=== PATIENT | male | born 1965 | race Caucasian/White ===

== ENCOUNTER 2017-06-26 10:46 | Observation (INO) | payer BC ==
[2017-06-26] MEDS ORDERED: BABY ASPIRIN 81 MG CHEW PO ONE (10:56)
[2017-06-26] MEDS ORDERED: Cardizem IV 50 MG/10 ML IV ONE ×5 (10:56→12:49)
[2017-06-26] MEDS ORDERED: CARDIZEM DRIP 100 MG/100 ML D5W 100 ML IV PRN ×2 (10:56→14:03)
--- NOTE | 2017-06-26 10:56 | ERPHSYRPT ---
- History of Present Illness Time Seen by Provider: 06/26/17 10:52 Source: patient Exam Limitations: no limitations Physician History: ABOUT 15 MINUTES AGO PT WAS WALKING TO HIS VEHICLE WHEN HE SUDDENLY FELT LIGHTHEADED WITH A FAST HEART RATE, SOME SHORTNESS OF AIR, WEAKNESS IN THE LEGS AND LEFT FACIAL NUMBNESS. PT DENIES RECENT STRENUOUS PHYSICAL ACTIVITY, CAFFEINE INTAKE TODAY, CHEST PAIN, FEVER, NAUSEA, VOMITING, ABDOMINAL PAIN. PT STATES HE HAS NEVER HAD THIS FAST HEART RATE BEFORE. Allergies/Adverse Reactions: No Known Drug Allergies Allergy (Verified 06/26/17 11:15) Home Medications: Alprazolam [Xanax 0.5 mg] 0.25 mg PO .PRN 02/21/15 [History] Esomeprazole Magnesium [Nexium] 40 mg PO DAILY 10/14/15 [History] Hydrochlorothiazide 25 mg [hydroDIURIL 25 MG] 25 mg PO DAILY 10/14/15 [ History] Lisinopril 10 mg [Zestril 10 MG] 40 mg PO DAILY 10/14/15 [History] Hx Tetanus, Diphtheria Vaccination/Date Given: Yes (UP TO DATE) Hx Influenza Vaccination/Date Given: No Hx Pneumococcal Vaccination/Date Given: No - Review of Systems Constitutional: Weakness (WEAKNESS IN BOTH LEGS TODAY) Respiratory: Dyspnea Cardiac: Other (FAST HEART RATE), No Chest Pain Neurological: Sensory Changes (LEFT FACIAL NUMBNESS TODAY), Other ( LIGHTHEADEDNESS TODAY) All Other Systems: Reviewed and Negative - Past Medical History Pertinent Past Medical History: Yes Neurological History: Other ENT History: No Pertinent History Cardiac History: Hypertension Respiratory History: No Pertinent History Endocrine Medical History: Other Musculoskeletal History: Degenerative Disk Disease GI Medical History: GERD History: No Pertinent History Psycho-Social History: Anxiety Male Reproductive Disorders: No Pertinent History Other Medical History: carpal tunnel surgery L 8 years ago. - Past Surgical History Past Surgical History: Yes Neuro Surgical History: No Pertinent History Cardiac: Cardiac Catheterization Respiratory: No Pertinent History Gastrointestinal: Cholecystectomy Genitourinary: No Pertinent History Musculoskeletal: Other Male Surgical History: No Pertinent History Other Surgical History: carpal tunnel left hand, LUIS ALFREDO - couple months ago - Social History Smoking Status: Never smoker Exposure to second hand smoke: No Alcohol Use: 6 /day Drug Use: none Patient Lives Alone: No Significant Family History: no pertinent family hx - Nursing Vital Signs Nursing Vital Signs: Initial Vital Signs Temperature 98.3 F 06/26/17 10:56 Pulse Rate 166 H 06/26/17 10:56 Respiratory Rate 18 06/26/17 10:56 Blood Pressure 190/99 06/26/17 10:56 O2 Sat by Pulse Oximetry 97 06/26/17 10:56 Pain Scale Pain Intensity 2 - Physical Exam General Appearance: alert, anxiety Eye Exam: PERRL/EOMI Ears, Nose, Throat Exam: TMs normal, pharynx normal, moist mucous membranes Neck Exam: normal inspection Respiratory Exam: lungs clear Cardiovascular Exam: tachycardia, irregular Gastrointestinal/Abdomen Exam: soft, normal bowel sounds Back Exam: normal range of motion Extremity Exam: normal inspection, normal range of motion, No pedal edema Neurologic Exam: alert, cooperative, sensation nml (TO LIGHT TOUCH), No motor deficits, No motor weakness Skin Exam: warm, dry - Course Nursing assessment & vital signs reviewed: Yes EKG Interpreted by Me: RATE ([id number]), A-fib, NORMAL AXIS, Non-specific ST Changes Ordered Tests: Active Orders 24 hr Category Date Time Status Volunteer Recruiter STAT Care 06/26/17 10:57 Active EKG-ER Only STAT Care 06/26/17 10:56 Active IV Insertion STAT Care 06/26/17 10:56 Active Oxygen-ED Only NASAL CANNULA 2 lpm Care 06/26/17 10:56 Active CHEST 1 VIEW (PORTABLE) Stat Exams 06/26/17 10:57 Completed HEAD WITHOUT CONTRAST [CT] Stat Exams 06/26/17 11:03 Completed AMYLASE Stat Lab 06/26/17 11:10 Completed CBC W DIFF Stat Lab 06/26/17 11:10 Completed CMP Stat Lab 06/26/17 11:10 Completed LIPASE Stat Lab 06/26/17 11:10 Completed MAGNESIUM Stat Lab 06/26/17 11:10 Completed NT PRO BNP Stat Lab 06/26/17 11:10 Completed PROTIME WITH INR Stat Lab 06/26/17 11:10 Completed PTT Stat Lab 06/26/17 11:10 Completed T4 Stat Lab 06/26/17 11:10 Completed TROPONIN Q3H Lab 06/26/17 11:10 Completed TROPONIN Q3H Lab 06/26/17 14:00 Ordered TROPONIN Q3H Lab 06/26/17 17:00 Ordered TROPONIN Q3H Lab 06/26/17 20:00 Ordered TROPONIN Q3H Lab 06/26/17 23:00 Ordered TSH [TSH, 3RD Generation] Stat Lab 06/26/17 11:10 Completed UA W/RFX UR CULTURE Stat Lab 06/26/17 10:57 Ordered Urine Triage Profile Stat Lab 06/26/17 10:57 Ordered Medication Summary Generic Name Dose Route Start Last Admin Trade Name Frerene PRN Reason Stop Dose Admin Diltiazem HCl 100 mls @ 5 mls/hr 06/26/17 10:56 06/26/17 11:29 Cardizem Drip 100 Mg/100 Ml D5w IV 07/26/17 10:55 10 mg/hr .Q20H PRN 10 mls/hr HEART RATE/ A-FIB Titration Protocol 5 MG/HR Sodium Chloride 1,000 mls @ 100 mls/hr 06/26/17 11:00 06/26/17 11:21 Sodium Chloride 0.9% 1000 Ml IV 07/26/17 10:59 100 mls/hr .Q10H ADOLFO Administration Discontinued Medications Generic Name Dose Route Start Last Admin Trade Name Frerene PRN Reason Stop Dose Admin Aspirin 324 mg 06/26/17 10:56 06/26/17 11:27 Baby Aspirin 81 Mg Chew PO 06/26/17 10:57 324 mg STAT ONE Administration Aspirin Confirm 06/26/17 11:17 Baby Aspirin 81 Mg Chew Administered 06/26/17 11:18 Dose 324 mg .ROUTE .STK-MED ONE Diltiazem HCl 15 mg 06/26/17 10:56 06/26/17 11:20 Cardizem Iv 50 Mg/10 Ml IV 06/26/17 10:57 15 mg STAT ONE Administration Diltiazem HCl Confirm 06/26/17 11:18 Cardizem Iv 50 Mg/10 Ml Administered 06/26/17 11:19 Dose 50 mg IV .STK-MED ONE Diltiazem HCl 20 mg 06/26/17 11:27 06/26/17 11:36 Cardizem Iv 50 Mg/10 Ml IV 06/26/17 11:28 50 mg STAT ONE Administration Diltiazem HCl 20 mg 06/26/17 12:21 Cardizem Iv 50 Mg/10 Ml IV 06/26/17 12:22 STAT ONE Lab/Rad Data: Laboratory Result Diagrams 06/26/17 11:10 06/26/17 11:10 Laboratory Results 06/26/17 06/26/17 06/26/17 Range/Units 11:10 11:10 11:10 WBC 5.3 (4.0-10.5) K/mm3 RBC 5.37 (4.1-5.6) M/mm3 Hgb 16.3 (12.5-18.0) gm/dl Hct 48.3 (42-50) % MCV 89.9 (78-100) fl MCH 30.4 (26-32) pg MCHC 33.7 (32-36) g/dl RDW 13.4 (11.5-14.0) % Plt Count 208 (150-450) K/mm3 MPV 10.5 H (6-9.5) fl Gran % 51.8 (36.0-66.0) % Lymphocytes % 32.8 (24.0-44.0) % Monocytes % 12.1 H (0.0-12.0) % Eosinophils % 2.4 (0.00-5.0) % Basophils % 0.9 (0.0-0.4) % Basophils # 0.05 (0-0.4) INR (0.8-3.0) APTT (24.1-36.1) SECONDS Sodium (136-145) mEq/L Potassium (3.5-5.1) mEq/L Chloride (98-107) mEq/L Carbon Dioxide (21-32) mEq/L Anion Gap (5-15) MEQ/L BUN (9-20) mg/dL Creatinine (0.55-1.30) mg/dl Estimated GFR ML/MIN Glucose (70-110) MG/DL Calcium (8.5-10.1) mg/dL Magnesium (1.8-2.4) mg/dL Total Bilirubin (0.2-1.0) mg/dL AST (15-37) U/L ALT (12-78) U/L Alkaline Phosphatase (46-116) U/L Troponin I < 0.017 (0.000-0.056) ng/ml NT-Pro-B Natriuret Pep (0-125) pg/ml Serum Total Protein (6.4-8.2) gm/dL Albumin (3.4-5.0) g/dL Amylase (25-115) U/L Lipase (73-393) U/L Thyroxine (T4) 9.3 (4.7-13.3) UG/DL TSH 3rd Generation 2.690 (0.358-3.740) mIU/L 06/26/17 06/26/17 Range/Units 11:10 11:10 WBC (4.0-10.5) K/mm3 RBC (4.1-5.6) M/mm3 Hgb (12.5-18.0) gm/dl Hct (42-50) % MCV (78-100) fl MCH (26-32) pg MCHC (32-36) g/dl RDW (11.5-14.0) % Plt Count (150-450) K/mm3 MPV (6-9.5) fl Gran % (36.0-66.0) % Lymphocytes % (24.0-44.0) % Monocytes % (0.0-12.0) % Eosinophils % (0.00-5.0) % Basophils % (0.0-0.4) % Basophils # (0-0.4) INR 1.08 (0.8-3.0) APTT 28.7 (24.1-36.1) SECONDS Sodium 139 (136-145) mEq/L Potassium 3.8 (3.5-5.1) mEq/L Chloride 102 (98-107) mEq/L Carbon Dioxide 24.5 (21-32) mEq/L Anion Gap 16.2 H (5-15) MEQ/L BUN 9 (9-20) mg/dL Creatinine 1.11 (0.55-1.30) mg/dl Estimated GFR > 60 ML/MIN Glucose 204 H (70-110) MG/DL Calcium 9.1 (8.5-10.1) mg/dL Magnesium 1.9 (1.8-2.4) mg/dL Total Bilirubin 0.30 (0.2-1.0) mg/dL AST 51 H (15-37) U/L ALT 85 H (12-78) U/L Alkaline Phosphatase 62 (46-116) U/L Troponin I (0.000-0.056) ng/ml NT-Pro-B Natriuret Pep 22 (0-125) pg/ml Serum Total Protein 7.9 (6.4-8.2) gm/dL Albumin 3.8 (3.4-5.0) g/dL Amylase 60 (25-115) U/L Lipase 217 (73-393) U/L Thyroxine (T4) (4.7-13.3) UG/DL TSH 3rd Generation (0.358-3.740) mIU/L - Progress Discussed with Dr.: Farheen (OBS ICU - [id number]), Other (SPOKE WITH DR FAULKNER( DEMAND GENERATOR MANAGER)([id number]) - WILL CONSULT IN ICU. PT TO HAVE XARELTO 20 MG PO DAILY AND LOPRESSIOR 50MG PO BID.) - Departure Time of Disposition: 12:41 Departure Disposition: Observation (ICU) Clinical Impression: NEW ONSET A.FIB WITH RVR, HTN, GERD, ANXIETY Condition: Stable Critical Care Time: Yes Critical Care Time(excluding separately billable procedures): 30-74 minutes Referrals: JOVANY ECKERT [Primary Care Provider] -
[2017-06-26] MEDS ORDERED: Sodium Chloride 0.9% 1000 ML 1,000 ML IV SCH (11:00)
[2017-06-26] MEDS ORDERED: BABY ASPIRIN 81 MG CHEW ONE (11:17)
[2017-06-26] MEDS ORDERED: CARDIZEM DRIP 100 MG/100 ML D5W 100 ML IV ONE (11:18)
[2017-06-26 11:19] LABS: BASOPHIL % 0.9 % (0.0-0.4); Basophil (Absolute #) 0.05 (0-0.4); Eosinophil % 2.4 % (0.00-5.0); Eosinophil (Absolute #) 0.13 (0-0.5); Granulocyte Absolute (ANC) 2.75 (1.4-6.9); Granulocytes % 51.8 % (36.0-66.0); Hematocrit 48.3 % (42-50); Hemoglobin 16.3 gm/dl (12.5-18.0); Lymphocyte (Absolute #) 1.74 (1.0-4.6); Lymphocytes % 32.8 % (24.0-44.0); Mean Cell Volume 89.9 fl (78-100); Mean Corpuscular Hemoglobin 30.4 pg (26-32); Mean Corpuscular Hgb Concent. 33.7 g/dl (32-36); Mean Platelet Volume 10.5 fl (6-9.5); Monocyte (Absolute #) 0.64 (0.0-1.3); Monocytes % 12.1 % (0.0-12.0); Platelet Count 208 K/mm3 (150-450); Red Blood Count 5.37 M/mm3 (4.1-5.6); Red Cell Distribution Width 13.4 % (11.5-14.0); White Blood Count 5.3 K/mm3 (4.0-10.5)
[2017-06-26] MEDS ORDERED: Sodium Chloride 0.9% 1000 ML 1,000 ML ONE (11:19)
[2017-06-26 11:37] LABS: INR 1.08 (0.8-3.0)
[2017-06-26 11:40] LABS: PTT 28.7 SECONDS (24.1-36.1)
[2017-06-26 11:56] LABS: T4 9.3 UG/DL (4.7-13.3); TSH, 3RD Generation 2.69 mIU/L (0.358-3.740)
[2017-06-26 11:58] LABS: ALBUMIN 3.8 g/dL (3.4-5.0); ALKALINE PHOSPHATASE 62 U/L (46-116); AMYLASE 60 U/L (25-115); ANION GAP 16.2 MEQ/L (5-15); BLOOD UREA NITROGEN 9 mg/dL (9-20); CHLORIDE 102 mEq/L (98-107); Calcium 9.1 mg/dL (8.5-10.1); Carbon Dioxide 24.5 mEq/L (21-32); Creatinine 1 1.11 mg/dl (0.55-1.30); EST GLOMERULAR FILTRATION RATE > 60 ML/MIN; Glucose 204 MG/DL (70-110); LIPASE 217 U/L (73-393); MAGNESIUM 1.9 mg/dL (1.8-2.4); NT PRO BNP 22 pg/ml (0-125); Potassium 3.8 mEq/L (3.5-5.1); SGOT/AST 51 U/L (15-37); SGPT/ALT 85 U/L (12-78); SODIUM 139 mEq/L (136-145); Total Protein 7.9 gm/dL (6.4-8.2)
--- NOTE | 2017-06-26 12:27 | XRAY ---
Indication: Tachycardia. Comparison: February 21, 2015. Portable chest again demonstrates scattered calcified granulomas. No focal infiltrate, consolidation, or large effusion. Heart is not enlarged for AP portable technique. Bony thorax intact again with mild degenerative changes. Impression: Stable nonacute chest with chronic features.
--- NOTE | 2017-06-26 12:29 | XRAY ---
Indication: Tachycardia. Multiple contiguous axial images obtained through the head without contrast. Comparison: None Normal appearing brain parenchyma, ventricles, and bony calvarium. Visualized paranasal sinuses and mastoid air cells are clear. Impression: Normal CT head without contrast exam. CTDI 68.81
[2017-06-26 12:57] LABS: Appearance CLEAR (CLEAR); Bilirubin NEGATIVE (NEGATIVE); Blood NEGATIVE Ery/ul (0-5); Glucose NEGATIVE (NEGATIVE); Ketones NEGATIVE (NEGATIVE); Leukocyte Esterase NEGATIVE (NEGATIVE); Nitrite NEGATIVE (NEGATIVE); Protein,Urine Dip NEGATIVE (Negative); Specific Gravity 1.005 (1.005-1.025); Urobilinogen NORMAL mg/dL (0-1)
[2017-06-26 12:59] LABS: Amphetamine,Urine NEG. (NEGATIVE); Barbiturate,Urine NEG. (NEGATIVE); Benzodiazepine,Urine NEG. (NEGATIVE); Cocaine,Urine NEG. (NEGATIVE); Methadone,Urine NEG. (NEGATIVE); Opiate,Urine NEG. (NEGATIVE); PCP,Urine NEG. (NEGATIVE); THC,Urine NEG. (NEGATIVE)
[2017-06-26] MEDS ORDERED: XARELTO 10 MG TABLET PO SCH (13:00)
[2017-06-26] MEDS ORDERED: Lopressor 50 MG ONE (13:07)
[2017-06-26] MEDS ORDERED: Phenergan 25 MG INJ IV PRN (14:03)
[2017-06-26] MEDS ORDERED: TYLENOL 325 MG PO PRN (14:03)
[2017-06-26] MEDS ORDERED: xanAX 0.25 MG PO PRN (17:09)
[2017-06-26] MEDS ORDERED: Restoril 15 MG PO PRN (17:11)
--- NOTE | 2017-06-26 17:14 | PCM.HP ---
History of Present Illness - Chief Complaint Chief Complaint: Afib RVR Date: 06/26/17 History of Present Illness: is a 52 year old male. with hypertension, obstructive sleep apnea, obesity and moderate to heavy alcohol consumption who presented to ER today after acute onset palpitations and "not feeling right". He was feeling his normal self yesterday and this am and was drinking a gatorade in the gas station when he felt his heart start to flutter walked out to his car and felt strange and it pounding. He got his who brought him to the ED. He has chronic thoracic back pain that wraps around the thoracic area but no new chest pain or shortness of breath. He denies any caffeine or supplements. He drinks 8 to 10 light beers each night and last night was no different. He chews tobacco. He had a heart cath 5 to 6 years ago after a questionable stress test with Dr. Rosales that the patient reports was ok. - Review of Systems Constitutional: No Fever, No Chills Eyes: No Symptoms Ears, Nose, & Throat: No Symptoms Respiratory: No Cough, No Short Of Breath Cardiac: Palpitations, No Chest Pain, No Edema, No Syncope Abdominal/Gastrointestinal: No Abdominal Pain, No Nausea, No Vomiting, No Diarrhea Genitourinary Symptoms: No Dysuria Musculoskeletal: Back Pain, No Neck Pain Skin: No Rash Neurological: No Dizziness, No Focal Weakness, No Sensory Changes Psychological: No Symptoms Endocrine: No Symptoms Hematologic/Lymphatic: No Symptoms Immunological/Allergic: No Symptoms Medications & Allergies Home Medications: Home Medication List Esomeprazole Magnesium [Nexium] 40 mg PO DAILY 10/14/15 [History Confirmed 06/26] Hydrochlorothiazide 25 mg [hydroDIURIL 25 MG] 25 mg PO DAILY 10/14/15 [ History Confirmed 06/26/17] Alprazolam [Xanax 0.25 mg] 0.25 mg PO Q12H PRN PRN 06/26/17 [History Confirmed 06/26/17] Lisinopril [Zestril 40 mg] 40 mg PO DAILY 06/26/17 [History Confirmed 06/26/17] Allergies/Adverse Reactions: Allergies Allergy/AdvReac Type Severity Reaction Status Date / Time No Known Drug Allergies Allergy Verified 06/26/17 15:13 - Past Medical History Past Medical History: Yes Neurological History: No Pertinent History, Other ENT History: No Pertinent History Cardiac History: Arrhythmia, Hypertension Respiratory History: No Pertinent History Endocrine Medical History: No Pertinent History Musculoskelatal History: Degenerative Disk Disease GI Medical History: Hernia History: No Pertinent History Pyscho-Social History: Anxiety Male Reproductive Disorders: No Pertinent History Comment: carpal tunnel surgery L hand 8 years ago. - Past Surgical History Past Surgical History: Yes Neuro Surgical History: No Pertinent History Cardiac History: Cardiac Catheterization Respiratory Surgery: No Pertinent History GI Surgical History: Cholecystectomy Genitourinary Surgical Hx: No Pertinent History Musculskeletal Surgical Hx: Other Male Surgical History: No Pertinent History Other Surgical History: carpal tunnel left hand, LUIS ALFREDO - couple months ago - Social History Smoking Status: Never smoker (Daily chews tobacco) Exposure to second hand smoke: No Alcohol: Daily (8 to 10 light beers per night) Drug Use: none Significant Family History: heart disease (father at age 35 suspected heart disease due to rheumatic fever) - Physical Exam Vital Signs: Vital Signs - 24 hr Temp Pulse Pulse Resp BP Pulse Ox 06/26/17 16:00 16 06/26/17 15:36 78 16 98 06/26/17 14:45 97.5 F 97 H 16 113/62 97 06/26/17 12:58 120 H 18 125/66 96 06/26/17 12:21 135 H 18 161/98 98 06/26/17 11:36 128 H 20 136/77 97 06/26/17 11:22 136 H 18 186/89 06/26/17 10:56 98.3 F 177 H 166 H 18 190/99 97 Oxygen-Last 24 hours O2 Percentage 2 Liters = 28% O2 Percentage 2 Liters = 28% O2 Percentage 2 Liters = 28% O2 Percentage 2 Liters = 28% O2 Percentage 2 Liters = 28% General Appearance: no apparent distress, alert, obese Neurologic Exam: alert, oriented x 3, cooperative, normal mood/affect, nml cerebellar function, nml station & gait, sensation nml, No motor deficits Eye Exam: PERRL/EOMI, eyes nml inspection Ears, Nose, Throat Exam: normal ENT inspection, pharynx normal, moist mucous membranes Neck Exam: normal inspection, non-tender, supple, full range of motion Respiratory Exam: normal breath sounds, lungs clear, No respiratory distress Cardiovascular Exam: normal heart sounds, normal peripheral pulses, irregular Gastrointestinal/Abdomen Exam: soft, normal bowel sounds, No tenderness, No mass Back Exam: normal inspection, normal range of motion, No CVA tenderness, No vertebral tenderness Extremity Exam: normal inspection, normal range of motion, pelvis stable Skin Exam: normal color, warm, dry, No rash Lymphatic Exam: No adenopathy Results - Labs Lab/Micro Results: Lab Results-Last 24 Hours 06/26/17 Range/Units 14:00 Troponin I < 0.017 (0.000-0.056) ng/ml - Radiology Impressions Radiology Exams & Impressions: Radiology Procedures Category Date Time Status ECHO W/2D AND DOPPLER [US] Routine Exams 06/26/17 Ordered Assessment/Plan (1) Atrial fibrillation with RVR Current Visit: Yes Status: Acute Assessment & Plan: therapeutically anticoagulated on xarelto received in ED checking echo currently rate controlled on cardizem at 10mg/h Dr. Ortiz consulted on tele cardiology and recommends continue this tonight if spontaneously converts to sinus will plan on outpatient f/u on metoprolol if he does not convert will be npo at midnight and will plan for outpatient ADITHYA with cardioversion tomorrow in [place]. discussed tobacco cessation with his chewing and alcohol avoidance/moderation Code(s): I48.91 - UNSPECIFIED ATRIAL FIBRILLATION (2) Hypertension Current Visit: Yes Status: Chronic Code(s): I10 - ESSENTIAL (PRIMARY) HYPERTENSION (3) Sleep apnea Current Visit: Yes Status: Chronic Code(s): G47.30 - SLEEP APNEA, UNSPECIFIED (4) Morbid obesity Current Visit: Yes Status: Chronic Code(s): E66.01 - MORBID (SEVERE) OBESITY DUE TO EXCESS CALORIES
[2017-06-26] MEDS ORDERED: Zestril 20 MG PO SCH (18:00)
[2017-06-26] MEDS ORDERED: Protonix 40MG Tablet PO SCH (18:00)
[2017-06-26] MEDS: Sodium Chloride 0.9% 1000 ML 1,000 ML IV SCH (20:05)
[2017-06-26] MEDS ORDERED: Lopressor 50 MG PO SCH (22:00)
[2017-06-27 05:41] LABS: BASOPHIL % 0.7 % (0.0-0.4); Basophil (Absolute #) 0.04 (0-0.4); Eosinophil % 2.8 % (0.00-5.0); Eosinophil (Absolute #) 0.16 (0-0.5); Granulocyte Absolute (ANC) 2.86 (1.4-6.9); Granulocytes % 49.2 % (36.0-66.0); Hematocrit 46.3 % (42-50); Lymphocyte (Absolute #) 1.97 (1.0-4.6); Mean Cell Volume 92.2 fl (78-100); Mean Corpuscular Hemoglobin 29.9 pg (26-32); Mean Corpuscular Hgb Concent. 32.4 g/dl (32-36); Mean Platelet Volume 10.6 fl (6-9.5); Monocyte (Absolute #) 0.77 (0.0-1.3); Monocytes % 13.3 % (0.0-12.0); Platelet Count 227 K/mm3 (150-450); Red Blood Count 5.02 M/mm3 (4.1-5.6); Red Cell Distribution Width 13.6 % (11.5-14.0); White Blood Count 5.8 K/mm3 (4.0-10.5)
[2017-06-27] MEDS: Sodium Chloride 0.9% 1000 ML 1,000 ML IV SCH (05:44)
[2017-06-27 06:48] LABS: ALBUMIN 3.1 g/dL (3.4-5.0); ALKALINE PHOSPHATASE 47 U/L (46-116); ANION GAP 13.4 MEQ/L (5-15); BLOOD UREA NITROGEN 8 mg/dL (9-20); CHLORIDE 108 mEq/L (98-107); Calcium 8.7 mg/dL (8.5-10.1); Carbon Dioxide 25.8 mEq/L (21-32); Creatinine 1 1.02 mg/dl (0.55-1.30); EST GLOMERULAR FILTRATION RATE > 60 ML/MIN; Glucose 100 MG/DL (70-110); MAGNESIUM 2.1 mg/dL (1.8-2.4); Potassium 4.1 mEq/L (3.5-5.1); SGOT/AST 32 U/L (15-37); SGPT/ALT 66 U/L (12-78); SODIUM 143 mEq/L (136-145); Total Protein 6.8 gm/dL (6.4-8.2)
--- NOTE | 2017-06-27 07:46 | PCM.DS ---
Discharge Summary Date of Admission: 06/26/17 13:49 Date of Discharge: 06/27/2017 Admitting Physician: BAILEY CHAKRABORTY Consults: Dr. Ortiz Primary Care Provider: JOVANY ECKERT Allergies Allergies No Known Drug Allergies Allergy (Verified 06/26/17 15:13) Hospital Summary - Hospital Course Hospital Course: Mr. Guerrero is a 52 y/o with hypertension, obstructive sleep apnea, obesity and moderate to heavy alcohol consumption who presented to ER after an acute onset palpitations and "not feeling right". He was found to be in atrial fibrillation with RVR with a rate of 170 on arrival. He was given cardizem bolus followed by drip with improvement in the rate. He had previously seen Dr. Faulkner for a heart cath about 5 years ago that the patient reported was normal and Dr. Faulkner was consulted from the ED and Dr. Ortiz did the tele cardiology consult for him on arrival to the ICU and recommended xarelto and po metorpolol which he was started on. His cardizem gtt was continued and at 05:00 he spontaneously converted to sinus rhythm. He had Echo on day of presentation with no significant abnormalities. He was feeling ok with no difficulties and was discharged with outpatient follow up with cardiology and new prescription for xarelto and metoprolol as well as atorvastatin as his cholesterol was found to be very high with ldl of 202. He is to stop his hctz as we held it during admission with starting the metoprolol and bp was running no the low end. He is advised to stop alcohol and avoid caffeine as well as start treating his sleep apnea again by wearing his cpap. - Vitals & Intake/Output Vital Signs: Vital Signs Temperature 97.8 F 06/27/17 00:00 Pulse Rate 56 L 06/27/17 05:00 Respiratory Rate 14 06/27/17 05:00 Blood Pressure 120/74 06/27/17 05:00 O2 Sat by Pulse Oximetry 97 06/27/17 05:00 Oxygen-Last Documented O2 Percentage 2 Liters = 28% Intake & Output: Intake & Output 06/24/17 06/25/17 06/26/17 06/27/17 11:59 11:59 11:59 11:59 Intake Total 2528 Output Total 900 Balance 1628 Weight 118 kg - Lab Result Diagrams: 06/27/17 05:25 06/27/17 05:25 Lab Results-Last 24 Hrs: Lab Results-Last 24 Hours 06/26/17 06/26/17 06/26/17 Range/Units 14:00 20:09 23:03 WBC (4.0-10.5) K/mm3 RBC (4.1-5.6) M/mm3 Hgb (12.5-18.0) gm/dl Hct (42-50) % MCV (78-100) fl MCH (26-32) pg MCHC (32-36) g/dl RDW (11.5-14.0) % Plt Count (150-450) K/mm3 MPV (6-9.5) fl Gran % (36.0-66.0) % Lymphocytes % (24.0-44.0) % Monocytes % (0.0-12.0) % Eosinophils % (0.00-5.0) % Basophils % (0.0-0.4) % Basophils # (0-0.4) Sodium (136-145) mEq/L Potassium (3.5-5.1) mEq/L Chloride (98-107) mEq/L Carbon Dioxide (21-32) mEq/L Anion Gap (5-15) MEQ/L BUN (9-20) mg/dL Creatinine (0.55-1.30) mg/dl Estimated GFR ML/MIN Glucose (70-110) MG/DL Hemoglobin A1c (4.5-6.2) Calcium (8.5-10.1) mg/dL Magnesium (1.8-2.4) mg/dL Total Bilirubin (0.2-1.0) mg/dL AST (15-37) U/L ALT (12-78) U/L Alkaline Phosphatase (46-116) U/L Troponin I < 0.017 0.020 0.019 (0.000-0.056) ng/ml Serum Total Protein (6.4-8.2) gm/dL Albumin (3.4-5.0) g/dL Triglycerides (30-200) mg/dL Cholesterol (100-200) mg/dL LDL Cholesterol (5-99) mg/dL HDL Cholesterol (35-60) mg/dL Heart Disease Risk Ratio 06/26/17 06/27/17 06/27/17 Range/Units Unknown 05:25 05:25 WBC 5.8 (4.0-10.5) K/mm3 RBC 5.02 (4.1-5.6) M/mm3 Hgb 15.0 (12.5-18.0) gm/dl Hct 46.3 (42-50) % MCV 92.2 (78-100) fl MCH 29.9 (26-32) pg MCHC 32.4 (32-36) g/dl RDW 13.6 (11.5-14.0) % Plt Count 227 (150-450) K/mm3 MPV 10.6 H (6-9.5) fl Gran % 49.2 (36.0-66.0) % Lymphocytes % 34.0 (24.0-44.0) % Monocytes % 13.3 H (0.0-12.0) % Eosinophils % 2.8 (0.00-5.0) % Basophils % 0.7 (0.0-0.4) % Basophils # 0.04 (0-0.4) Sodium 143 (136-145) mEq/L Potassium 4.1 (3.5-5.1) mEq/L Chloride 108 H (98-107) mEq/L Carbon Dioxide 25.8 (21-32) mEq/L Anion Gap 13.4 (5-15) MEQ/L BUN 8 L (9-20) mg/dL Creatinine 1.02 (0.55-1.30) mg/dl Estimated GFR > 60 ML/MIN Glucose 100 (70-110) MG/DL Hemoglobin A1c 5.8 (4.5-6.2) Calcium 8.7 (8.5-10.1) mg/dL Magnesium 2.1 (1.8-2.4) mg/dL Total Bilirubin 0.40 (0.2-1.0) mg/dL AST 32 (15-37) U/L ALT 66 (12-78) U/L Alkaline Phosphatase 47 (46-116) U/L Troponin I (0.000-0.056) ng/ml Serum Total Protein 6.8 (6.4-8.2) gm/dL Albumin 3.1 L (3.4-5.0) g/dL Triglycerides (30-200) mg/dL Cholesterol (100-200) mg/dL LDL Cholesterol (5-99) mg/dL HDL Cholesterol (35-60) mg/dL Heart Disease Risk Ratio 06/27/17 Range/Units 05:25 WBC (4.0-10.5) K/mm3 RBC (4.1-5.6) M/mm3 Hgb (12.5-18.0) gm/dl Hct (42-50) % MCV (78-100) fl MCH (26-32) pg MCHC (32-36) g/dl RDW (11.5-14.0) % Plt Count (150-450) K/mm3 MPV (6-9.5) fl Gran % (36.0-66.0) % Lymphocytes % (24.0-44.0) % Monocytes % (0.0-12.0) % Eosinophils % (0.00-5.0) % Basophils % (0.0-0.4) % Basophils # (0-0.4) Sodium (136-145) mEq/L Potassium (3.5-5.1) mEq/L Chloride (98-107) mEq/L Carbon Dioxide (21-32) mEq/L Anion Gap (5-15) MEQ/L BUN (9-20) mg/dL Creatinine (0.55-1.30) mg/dl Estimated GFR ML/MIN Glucose (70-110) MG/DL Hemoglobin A1c (4.5-6.2) Calcium (8.5-10.1) mg/dL Magnesium (1.8-2.4) mg/dL Total Bilirubin (0.2-1.0) mg/dL AST (15-37) U/L ALT (12-78) U/L Alkaline Phosphatase (46-116) U/L Troponin I (0.000-0.056) ng/ml Serum Total Protein (6.4-8.2) gm/dL Albumin (3.4-5.0) g/dL Triglycerides 161 (30-200) mg/dL Cholesterol 289 H (100-200) mg/dL LDL Cholesterol 202 H (5-99) mg/dL HDL Cholesterol 48 (35-60) mg/dL Heart Disease Risk Ratio 6.0 - Radiology Exams Ordered Rad Exams-Entire Visit: Radiology Procedures Category Date Time Status ECHO W/2D AND DOPPLER [US] Routine Exams 06/26/17 17:35 Taken Discharge Exam General Appearance: no apparent distress, alert, obese Neurologic Exam: alert, oriented x 3, cooperative, normal mood/affect, nml cerebellar function, sensation nml, No motor deficits Skin Exam: normal color, warm, dry Eye Exam: PERRL, EOMI, eyes nml inspection Ears, Nose, Throat Exam: normal ENT inspection, pharynx normal, moist mucous membranes Neck Exam: normal inspection, non-tender, supple, full range of motion Respiratory Exam: normal breath sounds, lungs clear, No respiratory distress Cardiovascular Exam: regular rate/rhythm, normal heart sounds Gastrointestinal/Abdomen Exam: soft, No tenderness, No mass Extremity Exam: normal inspection, normal range of motion Back Exam: normal inspection, normal range of motion, No CVA tenderness, No vertebral tenderness Male Genitalia Exam: deferred Rectal Exam: deferred Final Diagnosis/Problem List - Final Discharge Diagnosis/Problem (1) Atrial fibrillation with RVR Status: Acute (2) Hypertension Status: Chronic (3) Sleep apnea Status: Chronic (4) Morbid obesity Status: Chronic - Discharge Discharge Date: 06/27/17 Disposition: Home, Self-Care Condition: Stable Prescriptions: New Atorvastatin Calcium 40 mg PO DAILY #30 tablet Metoprolol Tartrate 50 mg [Lopressor 50 MG] 50 mg PO BID #60 tablet Rivaroxaban [Xarelto] 20 mg PO DAILY #30 tablet Acetaminophen 325 mg [Tylenol 325 mg] 650 mg PO Q4H PRN PRN tablet PRN Reason: Pain And/Or Fever Rivaroxaban 10 mg Tablet [Xarelto 10 mg Tablet] 20 mg PO DAILY 30 Days #30 tablet Continue Esomeprazole Magnesium [Nexium] 40 mg PO DAILY Alprazolam [Xanax 0.25 mg] 0.25 mg PO Q12H PRN PRN PRN Reason: axiety Lisinopril [Zestril 40 mg] 40 mg PO DAILY Discontinued Hydrochlorothiazide 25 mg [hydroDIURIL 25 MG] 25 mg PO DAILY Instructions: High Cholesterol, Atrial Fibrillation, Low Cholesterol, Saturated Fat, and Trans Fat Diet , Atrial Fibrillation (DC), Going Home on Blood Thinners Additional Instructions: It is ok to take Tylenol (acetaminophen) while on the blood thinner but do not take any other over the counter pain medication or anti inflammatory "NSAID" If you have bleeding in the stool, dark tarry stools or are vomiting blood return to the hospital immediately. Follow up with: ROGER FAULKNER [CONSULTING PHYSICIAN] - 07/04/17 1:00 pm JOVANY ECKERT [Primary Care Provider] - 07/03/17 9:30 am Forms: Discharge Instructions, Patient Portal Information
[2017-06-27 08:03] VITALS: BP 130/72; PULSE 62; O2SAT 99
[2017-06-27] MEDS ORDERED: Lopressor 50 MG PO SCH (10:00)
[2017-06-27] MEDS ORDERED: XARELTO 10 MG TABLET PO SCH (10:00)
[2017-06-27] MEDS ORDERED: NON-FORMULARY ITEM (Lisinopril [Zestril 40 Mg] 40 MG) PO SCH (10:00)
--- NOTE | 2017-06-27 13:07 | ECHO ---
DATE: 06/26/2017 PROCEDURE: Complete two-dimensional echocardiogram with color Doppler and Spectral Doppler analysis. INDICATION: Atrial fibrillation. FINDINGS: Left ventricle is normal size with moderate concentric left ventricular hypertrophy and normal left ventricle systolic function with ejection fraction of 65%. The right ventricle is mildly dilated with normal systolic function. The left atrium is normal size. The right atrium is normal size. Inferior vena cava is normal. The aortic valve is trileaflet with no aortic stenosis, no aortic regurgitation. The valve opens well. There is no mitral regurgitation. The mitral valve appears to be structurally normal. The tricuspid valve leaflets are thin and pliable. There is trace tricuspid regurgitation. Unable to estimate right ventricular systolic pressure due to absent/lack of adequate TR-signal. Pulmonic valve is normal with no pulmonic regurgitation. The aortic root is normal size. The ascending aorta has maximal diameter of 3.3 cm. There is no pericardial effusion. SUMMARY: 1) Normal left ventricular size with moderate concentric left ventricular hypertrophy and normal left ventricular systolic function with ejection fraction of 65%. 2) Mildly dilated right ventricle with normal right ventricular systolic function. 3) Valves are normal with no hemodynamically significant regurgitation or stenosis. 4) No pericardial effusion.
== END 2017-06-27 09:25 | disposition home or self-care (01) ==
LOC: ED 10:46 → ICU 13:49
PROVIDERS: ADMIT Family Medicine; ATTEND Family Medicine
DX: I48.91 Unspecified atrial fibrillation (principal); I10 Essential (primary) hypertension; G47.33 Obstructive sleep apnea (adult) (pediatric); E66.01 Morbid (severe) obesity due to excess calories; Z79.899 Other long term (current) drug therapy; F41.9 Anxiety disorder, unspecified
CPT/HCPCS: 36000; 36415; 70450; 71045; 80053; 80061; 80307; 81002; 82150; 83036; 83690; 83721; 83735; 83880; 84436; 84443; 84484; 85025; 85610; 85730; 93005; 93041; 93268; 93306; 96360; 96361; 96365; 96366; 96374; 96375; 99285; G0378; Q3014; A9270-GY

== ENCOUNTER 2018-01-22 19:04 | Emergency (ER) | payer SELFPAY ==
[2018-01-22 19:29] VITALS: O2SAT 98
[2018-01-22 20:10] VITALS: PULSE 73
--- NOTE | 2018-01-22 20:10 | ERPHSYRPT ---
- History of Present Illness Time Seen by Provider: 01/22/18 19:53 Source: patient Exam Limitations: no limitations Patient Subjective Stated Complaint: hypertension Triage Nursing Assessment: Pt stated that his BP has been running high all day, BP 184/99, does take blood pressure medication, headache, pulses normal, heart sounds normal, no difficulty with strength, doesn't appear to be in any distress Physician History: 52-year-old white male with history of high blood pressure arrhythmia, hyperlipidemia, hernia degenerative disc disease anxiety Arrives with complaint of a headache, elevated blood pressure symptoms off and on today. He states he's had nasal congestion as well. Past medical history includes arrhythmia, hyperlipidemia, hernia, degenerative disc disease, anxiety, carpal tunnel, left hand surgery past surgical history includes cardiac catheter, cholecystectomy, carpal tunnel, LUIS ALFREDO Timing/Duration: today Severity: moderate Modifying Factors: Improves With: nothing Associated Symptoms: headaches, other (elevated blood pressure), No nausea, No vomiting, No abdominal pain, No shortness of breath, No heartburn, No diaphoresis, No cough, No chills, No chest pain, No fever, No loss of appetite, No malaise, No rash, No syncope, No seizure, No weakness Allergies/Adverse Reactions: No Known Drug Allergies Allergy (Verified 01/22/18 19:29) Home Medications: Esomeprazole Magnesium [Nexium] 40 mg PO DAILY 10/14/15 [History] Lisinopril [Zestril 40 mg] 40 mg PO DAILY 06/26/17 [History] Apixaban [Eliquis 5 mg Tablet] 5 mg PO BID 01/22/18 [History] Hydrochlorothiazide 25 mg PO DAILY 01/22/18 [History] Hx Tetanus, Diphtheria Vaccination/Date Given: Yes (UP TO DATE) Hx Influenza Vaccination/Date Given: No Hx Pneumococcal Vaccination/Date Given: No - Review of Systems Constitutional: No Fever, No Chills Eyes: No Symptoms Ears, Nose, & Throat: No Symptoms Respiratory: No Cough, No Dyspnea Cardiac: No Chest Pain, No Edema, No Syncope Abdominal/Gastrointestinal: No Abdominal Pain, No Nausea, No Vomiting, No Diarrhea Genitourinary Symptoms: No Dysuria Musculoskeletal: No Back Pain, No Neck Pain Skin: No Rash Neurological: Headache, No Dizziness, No Focal Weakness, No Sensory Changes Psychological: No Symptoms Endocrine: No Symptoms All Other Systems: Reviewed and Negative - Past Medical History Pertinent Past Medical History: Yes Neurological History: No Pertinent History ENT History: No Pertinent History Cardiac History: Arrhythmia, High Cholesterol, Hypertension Respiratory History: No Pertinent History Endocrine Medical History: No Pertinent History Musculoskeletal History: Degenerative Disk Disease GI Medical History: Hernia History: No Pertinent History Psycho-Social History: Anxiety Male Reproductive Disorders: No Pertinent History Other Medical History: carpal tunnel surgery L hand 8 years ago. - Past Surgical History Past Surgical History: Yes Neuro Surgical History: No Pertinent History Cardiac: Cardiac Catheterization Respiratory: No Pertinent History Gastrointestinal: Cholecystectomy Genitourinary: No Pertinent History Musculoskeletal: Other Male Surgical History: No Pertinent History Other Surgical History: carpal tunnel left hand, LUIS ALFREDO - couple months ago - Social History Smoking Status: Never smoker Exposure to second hand smoke: No Alcohol Use: 6 /day Drug Use: none Patient Lives Alone: No Significant Family History: heart disease (father at age 35 suspected heart disease due to rheumatic fever) - Nursing Vital Signs Nursing Vital Signs: Initial Vital Signs Temperature 98.3 F 01/22/18 19:22 Pulse Rate 85 01/22/18 19:22 Blood Pressure 184/99 01/22/18 19:22 O2 Sat by Pulse Oximetry 98 01/22/18 19:22 Pain Scale Pain Intensity 0 - Physical Exam General Appearance: no apparent distress, alert Eye Exam: PERRL/EOMI, eyes nml inspection Ears, Nose, Throat Exam: normal ENT inspection, TMs normal, pharynx normal, moist mucous membranes Neck Exam: normal inspection, non-tender, supple, full range of motion Respiratory Exam: normal breath sounds, lungs clear, No respiratory distress Cardiovascular Exam: regular rate/rhythm, normal heart sounds, normal peripheral pulses Gastrointestinal/Abdomen Exam: soft, normal bowel sounds, No tenderness, No mass Back Exam: normal inspection, normal range of motion, No CVA tenderness, No vertebral tenderness Extremity Exam: normal inspection, normal range of motion, pelvis stable Neurologic Exam: alert, oriented x 3, cooperative, manager creative II-XII nml as tested, normal mood/affect, nml cerebellar function, nml station & gait, sensation nml, No motor deficits Skin Exam: normal color, warm, dry, No rash SpO2 Interpretation: normal (98%) SpO2: 98 Oxygen Delivery: Room Air - Course Nursing assessment & vital signs reviewed: Yes EKG Interpreted by Me: RATE (^& BPM), Sinus Rhythm, NORMAL AXIS, Other (EKG: Sinus rhythm, 67 bpm, normal axis, first-degree AV block no acute ST or T wave changes noted) - CT Exams Head CT Interpretation: Discussed w/radiologist (head CT: 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 Remaining head CT negative) Ordered Tests: Active Orders 24 hr Category Date Time Status EKG-ER Only STAT Care 01/22/18 19:59 Active IV Insertion STAT Care 01/22/18 19:59 Active - Progress Progress: improved Progress Note: 01/22/18 20:47 52-year-old white male who arrived with a complaint of a mild headache frontal nasal congestion and increased blood pressure since today. Patient really did not want any labs drawn I did place an IV of did an EKG. EKG sinus rhythm 67 bpm first-degree AV block no acute ST or T wave changes. Patient's blood pressure on arrival 184/99 Patient now with a blood pressure 157/84 feeling better. He says he has a mild frontal headache have offered him Tylenol he doesn't really doesn't want anything. He's had some nasal congestion he states he will take severe tachycardia at home. Blood pressure medicines at home include hydrochlorothiazide 25 mg a day metoprolol 50 mg twice a day and Zestril 40 mg every bedtime. Patient is feeling better he does not want Tylenol here. Will discharge patient have him return home rest follow-up with his family doctor. 01/22/18 20:51 - Departure Time of Disposition: 20:49 Departure Disposition: Home Clinical Impression: Hypertension Qualifiers: Hypertension type: unspecified Qualified Code(s): I10 - Essential (primary) hypertension URI (upper respiratory infection) Qualifiers: URI type: unspecified URI Qualified Code(s): J06.9 - Acute upper respiratory infection, unspecified Condition: Fair Critical Care Time: No Referrals: JOVANY ECKERT [Primary Care Provider] - Additional Instructions: Return home. Medications as prescribed by your family doctor. Follow-up with your family doctor. Return for acute distress or for severe symptoms.
[2018-01-22 20:59] VITALS: BP 157/84
== END 2018-01-22 21:03 | disposition home or self-care (01) ==
LOC: ED 19:04
DX: I10 Essential (primary) hypertension (principal); R51 Headache; J06.9 Acute upper respiratory infection, unspecified; Z79.899 Other long term (current) drug therapy
CPT/HCPCS: 36000; 93005; 99284

== ENCOUNTER 2022-05-05 10:40 | Emergency (ER) | payer MEDICARE ==
[2022-05-05] MEDS ORDERED: BABY ASPIRIN 81 MG CHEW PO ONE (11:08)
[2022-05-05 11:23] LABS: Basophil (Absolute #) 0.06 x10^3/uL (0-0.4); Eosinophil (Absolute #) 0.14 x10^3/uL (0-0.5); Hematocrit 48.1 % (42-50); Hemoglobin 15.7 g/dL (12.5-18.0); Lymphocyte (Absolute #) 1.43 x10^3/uL (1.0-4.6); Lymphocytes % 30.3 % (24.0-44.0); Mean Cell Volume 93.2 fL (78-100); Mean Corpuscular Hemoglobin 30.4 pg (26-32); Mean Corpuscular Hgb Concent. 32.6 g/dL (32-36); Mean Platelet Volume 10.3 fL (7.5-11.0); Monocyte (Absolute #) 0.47 x10^3/uL (0.0-1.3); Platelet Count 226 x10^3/uL (150-450); Red Blood Count 5.16 x10^6/uL (4.1-5.6); Red Cell Distribution Width 12.8 % (11.5-14.0); White Blood Count 4.7 x10^3/uL (4.0-10.5)
[2022-05-05 11:41] LABS: ALBUMIN 3.9 g/dL (3.5-5.0); ALKALINE PHOSPHATASE 78 U/L (38-126); ANION GAP 11.8 MEQ/L (5-15); BLOOD UREA NITROGEN 10 mg/dL (9-20); CHLORIDE 100 mmol/L (98-107); Calcium 8.4 mg/dL (8.4-10.2); Carbon Dioxide 27 mmol/L (22-30); Creatinine 1 0.83 mg/dL (0.66-1.25); EST GLOMERULAR FILTRATION RATE > 60.0 ML/MIN; Glucose 206 mg/dL (74-106); NT PRO BNP 54.1 pg/mL (0-900); SGOT/AST 32 U/L (17-59); SGPT/ALT 33 U/L (0-50); SODIUM 134 mmol/L (137-145); Total Protein 7.3 g/dL (6.3-8.2)
[2022-05-05 12:44] VITALS: O2SAT 96
--- NOTE | 2022-05-05 13:55 | ERPHSYRPT ---
- History of Present Illness Time Seen by Provider: 05/05/22 10:58 Historian: patient Exam Limitations: no limitations Patient Subjective Stated Complaint: Pt c/o of an odd feeling in his chest that is possibly palpatations but he is not sure Triage Nursing Assessment: Pt brought to the hospital by his , hypertensive, denies pain, heart began "fluttering" today, hx of a-fib, is not on blood thinners, pulses normal, stated that his heart was racing earlier, hx of heart cath approx 15 years, no edema noted, skin n/w/d, doesn't appear to be in any distress Physician History: 57 years old male with remote history of paroxysmal atrial fibrillation not anticoagulated and not taking even antiplatelets presented in the ER with chief complaint of sudden onset palpitations and chest tightness after eating breakfast. Lasted for almost 20 minutes and started to improve on its own and currently patient is asymptomatic. Denies any difficulty breathing associated with it. Patient reported was a kind of fluttering sensation but a little different than when he had atrial fibrillation. Denies cough fever or chills. Timing/Duration: hour(s) (0.5), constant, sudden, improved Activities at Onset: activity Quality: aching Location: substernal Chest Pain Radiation: no radiation Severity of Pain-Max: mild Severity of Pain-Current: none Modifying Factors: Improves With: nothing Associated Symptoms: denies symptoms Prior Chest Pain/Cardiac Workup: cardiac cath Nitro Today/Relief: no nitro taken today Aspirin Treatment Today: no aspirin today Allergies/Adverse Reactions: No Known Drug Allergies Allergy (Verified 05/05/22 11:00) Home Medications: Esomeprazole Magnesium [Nexium] 40 mg PO UD PRN 10/14/15 [History] lisinopriL [Zestril 40 mg] 40 mg PO DAILY 06/26/17 [History] hydroCHLOROthiazide [Hydrochlorothiazide] 12.5 mg PO DAILY 01/22/18 [History] Hx Tetanus, Diphtheria Vaccination/Date Given: Yes (UP TO DATE) Hx Influenza Vaccination/Date Given: No Hx Pneumococcal Vaccination/Date Given: No Travel Risk - International Travel Have you traveled outside of the country in past 3 weeks: No - Coronavirus Screening Are you exhibiting any of the following symptoms?: No Close contact with a COVID-19 positive Pt in past 14-21 Days: No - Vaccine Status Have you recieved a Covid-19 vaccination: No - Review of Systems Constitutional: No Symptoms Eyes: No Symptoms Ears, Nose, & Throat: No Symptoms Respiratory: No Symptoms Cardiac: Palpitations Abdominal/Gastrointestinal: No Symptoms Genitourinary Symptoms: No Symptoms Musculoskeletal: No Symptoms Skin: No Symptoms Psychological: No Symptoms Endocrine: No Symptoms Hematologic/Lymphatic: No Symptoms Immunological/Allergic: No Symptoms - Past Medical History Pertinent Past Medical History: Yes Neurological History: No Pertinent History ENT History: No Pertinent History Cardiac History: Arrhythmia, High Cholesterol, Hypertension Respiratory History: No Pertinent History Endocrine Medical History: No Pertinent History Musculoskeletal History: Degenerative Disk Disease GI Medical History: Hernia History: No Pertinent History Psycho-Social History: Anxiety Male Reproductive Disorders: No Pertinent History Other Medical History: carpal tunnel surgery L hand 8 years ago. - Past Surgical History Past Surgical History: Yes Neuro Surgical History: No Pertinent History Cardiac: Cardiac Catheterization Respiratory: No Pertinent History Gastrointestinal: Cholecystectomy Genitourinary: No Pertinent History Musculoskeletal: Other Male Surgical History: No Pertinent History Other Surgical History: carpal tunnel left hand, LUIS ALFREDO - couple months ago - Social History Smoking Status: Never smoker Exposure to second hand smoke: No Alcohol Use: 6 /day Drug Use: none Patient Lives Alone: No Significant Family History: heart disease (father at age 35 suspected heart disease due to rheumatic fever) - Nursing Vital Signs Nursing Vital Signs: Initial Vital Signs Temperature 98.3 F 05/05/22 10:47 Pulse Rate 93 H 05/05/22 10:47 Respiratory Rate 19 05/05/22 10:47 Blood Pressure 165/83 05/05/22 10:47 O2 Sat by Pulse Oximetry 99 05/05/22 10:47 Pain Scale Pain Intensity 0 - Physical Exam General Appearance: no apparent distress, alert Eye Exam: PERRL/EOMI Ears, Nose, Throat Exam: normal ENT inspection Neck Exam: normal inspection, supple, full range of motion Respiratory Exam: normal breath sounds, lungs clear Cardiovascular Exam: regular rate/rhythm, normal heart sounds Gastrointestinal/Abdomen Exam: soft, normal bowel sounds, No tenderness Back Exam: normal inspection, normal range of motion Extremity Exam: normal inspection, normal range of motion Neurologic Exam: alert, oriented x 3, cooperative Skin Exam: normal color SpO2 Interpretation: normal SpO2: 96 O2 Delivery: Room Air - Course EKG Interpreted by Me: RATE, Sinus Rhythm, NORMAL AXIS, NORMAL QRS Ordered Tests: Active Orders 24 hr Category Date Time Status Conduit Mechanic STAT Care 05/05/22 11:09 Active EKG-ER Only STAT Care 05/05/22 11:08 Active IV Insertion STAT Care 05/05/22 11:08 Active CHEST 1 VIEW (PORTABLE) Stat Exams 05/05/22 11:09 Taken CHEST WITH CONTRAST [CT] Stat Exams 05/05/22 11:41 Taken CBC W DIFF Stat Lab 05/05/22 11:00 Completed CMP Stat Lab 05/05/22 11:00 Completed D-DIMER QUANTITATIVE Stat Lab 05/05/22 11:00 Completed NT PRO BNP Stat Lab 05/05/22 11:00 Completed TROPONIN Q4H Lab 05/05/22 11:00 Completed TROPONIN Q4H Lab 05/05/22 15:15 Ordered TROPONIN Q4H Lab 05/05/22 19:15 Ordered Medication Summary Discontinued Medications Generic Name Dose Route Start Last Admin Trade Name Freq PRN Reason Stop Dose Admin Aspirin 324 mg 05/05/22 11:08 05/05/22 11:18 Aspirin 81 Mg Tab.Chew PO 05/05/22 11:09 324 mg STAT ONE Administration Lab/Rad Data: Laboratory Result Diagrams 05/05/22 11:00 05/05/22 11:00 Laboratory Results 05/05/22 05/05/22 05/05/22 Range/Units 11:00 11:00 11:00 WBC (4.0-10.5) x10^3/uL RBC (4.1-5.6) x10^6/uL Hgb (12.5-18.0) g/dL Hct (42-50) % MCV (78-100) fL MCH (26-32) pg MCHC (32-36) g/dL RDW (11.5-14.0) % Plt Count (150-450) x10^3/uL MPV (7.5-11.0) fL Gran % (36.0-66.0) % Immature Gran % (Auto) (0.00-0.4) % Nucleat RBC Rel Count (0.00-0.1) % Eos # (Auto) (0-0.5) x10^3/uL Immature Gran # (Auto) (0.00-0.03) x10^3u/L Absolute Lymphs (auto) (1.0-4.6) x10^3/uL Absolute Monos (auto) (0.0-1.3) x10^3/uL Absolute Nucleated RBC (0.00-0.01) x10^3u/L Lymphocytes % (24.0-44.0) % Monocytes % (0.0-12.0) % Eosinophils % (0.00-5.0) % Basophils % (0.0-0.4) % Absolute Granulocytes (1.4-6.9) x10^3/uL Basophils # (0-0.4) x10^3/uL D-Dimer 0.63 H* (0.0-0.50) mg/L Sodium 134 L (137-145) mmol/L Potassium 4.0 (3.5-5.1) mmol/L Chloride 100 (98-107) mmol/L Carbon Dioxide 27 (22-30) mmol/L Anion Gap 11.8 (5-15) MEQ/L BUN 10 (9-20) mg/dL Creatinine 0.83 (0.66-1.25) mg/dL Estimated GFR > 60.0 ML/MIN Glucose 206 H (74-106) mg/dL Calcium 8.4 (8.4-10.2) mg/dL Total Bilirubin 0.60 (0.2-1.3) mg/dL AST 32 (17-59) U/L ALT 33 (0-50) U/L Alkaline Phosphatase 78 (38-126) U/L Troponin I < 0.012 (0.000-0.034) ng/mL NT-Pro-B Natriuret Pep 54.1 (0-900) pg/mL Serum Total Protein 7.3 (6.3-8.2) g/dL Albumin 3.9 (3.5-5.0) g/dL 05/05/22 Range/Units 11:00 WBC 4.7 (4.0-10.5) x10^3/uL RBC 5.16 (4.1-5.6) x10^6/uL Hgb 15.7 (12.5-18.0) g/dL Hct 48.1 (42-50) % MCV 93.2 (78-100) fL MCH 30.4 (26-32) pg MCHC 32.6 (32-36) g/dL RDW 12.8 (11.5-14.0) % Plt Count 226 (150-450) x10^3/uL MPV 10.3 (7.5-11.0) fL Gran % 55.0 (36.0-66.0) % Immature Gran % (Auto) 0.4 (0.00-0.4) % Nucleat RBC Rel Count 0.0 (0.00-0.1) % Eos # (Auto) 0.14 (0-0.5) x10^3/uL Immature Gran # (Auto) 0.02 (0.00-0.03) x10^3u/L Absolute Lymphs (auto) 1.43 (1.0-4.6) x10^3/uL Absolute Monos (auto) 0.47 (0.0-1.3) x10^3/uL Absolute Nucleated RBC 0.00 (0.00-0.01) x10^3u/L Lymphocytes % 30.3 (24.0-44.0) % Monocytes % 10.0 (0.0-12.0) % Eosinophils % 3.0 (0.00-5.0) % Basophils % 1.3 (0.0-0.4) % Absolute Granulocytes 2.60 (1.4-6.9) x10^3/uL Basophils # 0.06 (0-0.4) x10^3/uL D-Dimer (0.0-0.50) mg/L Sodium (137-145) mmol/L Potassium (3.5-5.1) mmol/L Chloride (98-107) mmol/L Carbon Dioxide (22-30) mmol/L Anion Gap (5-15) MEQ/L BUN (9-20) mg/dL Creatinine (0.66-1.25) mg/dL Estimated GFR ML/MIN Glucose (74-106) mg/dL Calcium (8.4-10.2) mg/dL Total Bilirubin (0.2-1.3) mg/dL AST (17-59) U/L ALT (0-50) U/L Alkaline Phosphatase (38-126) U/L Troponin I (0.000-0.034) ng/mL NT-Pro-B Natriuret Pep (0-900) pg/mL Serum Total Protein (6.3-8.2) g/dL Albumin (3.5-5.0) g/dL - Progress Progress: improved Air Movement: good Progress Note: 05/05/22 14:46 Patient remained asymptomatic throughout stay in the ER. Ruled out ACS, PE, dissection, pneumonia, pneumothorax. Patient is advised to have outpatient follow-up with primary care and cardiology for reevaluation. Discussed signs symptoms of worsening needing return to ER which she seems understanding. Blood Culture(s) Obtained: No Antibiotics given: No Counseled pt/family regarding: lab results, diagnosis, need for follow-up, rad results - Departure Departure Disposition: Home Clinical Impression: Palpitation Condition: Stable Critical Care Time: No Referrals: JOVANY ECKERT NP [Primary Care Provider] - Follow Up with PCP/3 days ROGER FAULKNER [CONSULTING PHYSICIAN] - Follow up/PCP as directed (Call in 2 days for appointment for evaluation) Instructions: Palpitations (DC), Arrhythmias (DC) Additional Instructions: Continue with your current medications. Follow-up with primary care/cardiology for reevaluation. Return to ER for any worsening.
[2022-05-05 14:02] VITALS: PULSE 63
[2022-05-05 15:16] VITALS: BP 122/68
--- NOTE | 2022-05-05 17:52 | XRAY ---
Indication: Elevated d-dimer. Pulmonary embolus. Multiple contiguous axial images obtained through the chest with contrast using 100 cc Isovue-370 contrast and PE protocol. Comparison: May 16, 2005 Good opacification of the pulmonary arteries to include the lobar and segmental branches. No pulmonary embolus. Heart is now borderline enlarged. Aorta is minimally arteries carotid without aneurysm/dissection. Again tiny subcarinal and bilateral infrahilar calcified nodes. No pathologic mediastinal/hilar lymphadenopathy. Lungs again demonstrates a few tiny bilateral calcified granulomas. No infiltrate or effusion. Bony thorax intact with mild flowing osteophytes throughout the spine. Limited upper abdomen now demonstrates fatty liver and cholecystectomy. Impression: 1. Negative pulmonary embolus. No new/acute cardiopulmonary abnormalities. 2. Chronic findings including borderline cardiomegaly, chronic bony findings, fatty liver, and old granulomatous disease. Comment: Preliminary interpretation made by [facility]. No critical discrepancy.
--- NOTE | 2022-05-05 17:54 | XRAY ---
Indication: Palpitations. Comparison: June 26, 2017 Portable chest demonstrates new borderline cardiomegaly. Lungs remain clear again with tiny calcified granulomas. Bony thorax intact again with mild degenerative changes. No acute findings.
== END 2022-05-05 15:23 | disposition home or self-care (01) ==
LOC: ED 10:40
DX: R00.2 Palpitations (principal); R07.9 Chest pain, unspecified; E78.5 Hyperlipidemia, unspecified; I10 Essential (primary) hypertension; Z79.899 Other long term (current) drug therapy; Z28.310 Unvaccinated for COVID-19
CPT/HCPCS: 36000; 36415; 71045; 71260; 80053; 83880; 84484; 85025; 85379; 93005; 93041; 99284; A9270-GY

== ENCOUNTER 2023-05-12 00:34 | Emergency (ER) | payer MEDICARE ==
[2023-05-12] MEDS ORDERED: Sodium Chloride 0.9% 1000 ML 1,000 ML IV SCH (01:00)
[2023-05-12 01:01] VITALS: TEMP 98.2
[2023-05-12] MEDS ORDERED: Sodium Chloride 0.9% 1000 ML 1,000 ML ONE (01:46)
[2023-05-12 01:52] LABS: ALBUMIN 4.1 g/dL (3.5-5.0); ANION GAP 12.1 MEQ/L (5-15); BILIRUBIN,TOTAL 0.7 mg/dL (0.2-1.3); Calcium 9.1 mg/dL (8.4-10.2); Creatinine 1 0.7 mg/dL (0.66-1.25); EST GLOMERULAR FILTRATION RATE 107.5 ML/MIN; MAGNESIUM 2.1 mg/dL (1.6-2.3); Potassium 3.6 mmol/L (3.5-5.1); Total Protein 7.7 g/dL (6.3-8.2)
[2023-05-12 01:53] LABS: Absolute Neutrophil Ct (ANC) 3.43 x10^3/uL (1.4-6.9); Basophil (Absolute #) 0.06 x10^3/uL (0-0.4); Eosinophil % 2.8 % (0.00-5.0); Eosinophil (Absolute #) 0.17 x10^3/uL (0-0.5); Hematocrit 46.3 % (42-50); Hemoglobin 15.6 g/dL (12.5-18.0); IMMATURE GRAN # 0.01 x10^3u/L (0.00-0.03); IMMATURE GRAN % 0.2 % (0.00-0.4); Lymphocyte (Absolute #) 1.46 x10^3/uL (1.0-4.6); Lymphocytes % 23.9 % (24.0-44.0); Mean Cell Volume 91.7 fL (78-100); Mean Corpuscular Hemoglobin 30.9 pg (26-32); Mean Corpuscular Hgb Concent. 33.7 g/dL (32-36); Mean Platelet Volume 10.7 fL (7.5-11.0); Monocyte (Absolute #) 0.97 x10^3/uL (0.0-1.3); Monocytes % 15.9 % (0.0-12.0); Neutrophil % 56.2 % (36.0-66.0); Platelet Count 191 x10^3/uL (150-450); Red Blood Count 5.05 x10^6/uL (4.1-5.6); Red Cell Distribution Width 13.3 % (11.5-14.0); White Blood Count 6.1 x10^3/uL (4.0-10.5)
[2023-05-12 01:57] VITALS: RESP 19
[2023-05-12 02:02] VITALS: BP 115/58; PULSE 82
[2023-05-12 02:07] VITALS: O2SAT 96
--- NOTE | 2023-05-12 02:07 | ERPHSYRPT ---
- History of Present Illness Time Seen by Provider: 05/12/23 02:02 Source: patient Exam Limitations: no limitations Patient Subjective Stated Complaint: pt states that he was on his way to the bathroom when he began to have palpitation and lightheadness Triage Nursing Assessment: pt ambulated into the er; pt is axo x4; c/o palpitation; clear apical heart tone; clear lung sounds; sinus rhythm on monitor; strong joey radial pulses; strong joey pedal pulses; skin PDW; no respiratory distress present; pt denies CP; vitals wnl Physician History: pt states that he was on his way to the bathroom when he began to have palpi tation and lightheadness. Hx of atrial fibrillation few years ago He denies any other symptoms including chest pain shortness of breath nausea vomiting. Timing/Duration: today Activities at Onset: none Modifying Factors: Improves With: nothing Nitro Today/Relief: no nitro taken today Aspirin Treatment Today: no aspirin today Associated Symptoms: denies symptoms Prior Chest Pain/Cardiac Workup: no prior chest pain Allergies/Adverse Reactions: No Known Drug Allergies Allergy (Verified 05/12/23 00:54) Home Medications: Esomeprazole Magnesium [Nexium] 40 mg PO UD PRN 10/14/15 [History] lisinopriL [Zestril 40 mg] 40 mg PO DAILY 06/26/17 [History] hydroCHLOROthiazide [Hydrochlorothiazide] 12.5 mg PO DAILY 01/22/18 [History] Hx Tetanus, Diphtheria Vaccination/Date Given: Yes (UP TO DATE) Hx Influenza Vaccination/Date Given: No Hx Pneumococcal Vaccination/Date Given: No Travel Risk - International Travel Have you traveled outside of the country in past 3 weeks: No - Coronavirus Screening Are you exhibiting any of the following symptoms?: No Close contact with a COVID-19 positive Pt in past 14-21 Days: No - Vaccine Status Have you recieved a Covid-19 vaccination: No - Review of Systems Constitutional: No Fever, No Chills Eyes: No Symptoms Ears, Nose, & Throat: No Symptoms Respiratory: No Cough, No Dyspnea Cardiac: Palpitations, No Chest Pain, No Edema, No Syncope Abdominal/Gastrointestinal: No Abdominal Pain, No Nausea, No Vomiting, No Lee Ann rrhea Genitourinary Symptoms: No Dysuria Musculoskeletal: No Back Pain, No Neck Pain Skin: No Rash Neurological: Dizziness, No Focal Weakness, No Sensory Changes Psychological: No Symptoms Endocrine: No Symptoms All Other Systems: Reviewed and Negative - Past Medical History Pertinent Past Medical History: Yes Neurological History: No Pertinent History ENT History: No Pertinent History Cardiac History: Arrhythmia, High Cholesterol, Hypertension Respiratory History: No Pertinent History Endocrine Medical History: No Pertinent History Musculoskeletal History: Degenerative Disk Disease GI Medical History: Hernia History: No Pertinent History Psycho-Social History: Anxiety Male Reproductive Disorders: No Pertinent History Other Medical History: carpal tunnel surgery L hand 8 years ago. - Past Surgical History Past Surgical History: Yes Neuro Surgical History: No Pertinent History Cardiac: Cardiac Catheterization Respiratory: No Pertinent History Gastrointestinal: Cholecystectomy Genitourinary: No Pertinent History Musculoskeletal: Other Male Surgical History: No Pertinent History Other Surgical History: carpal tunnel left hand, [facility]O - couple months ago - Social History Smoking Status: Never smoker Exposure to second hand smoke: No Alcohol Use: 6 /day Drug Use: none Patient Lives Alone: No Significant Family History: heart disease (father at age 35 suspected heart disease due to rheumatic fever) - Nursing Vital Signs Nursing Vital Signs: Initial Vital Signs Temperature 98.2 F 05/12/23 00:54 Pulse Rate 92 H 05/12/23 00:54 Respiratory Rate 16 05/12/23 00:54 Blood Pressure 140/85 05/12/23 00:54 O2 Sat by Pulse Oximetry 96 05/12/23 00:54 Pain Scale Pain Intensity 0 - Physical Exam General Appearance: no apparent distress, alert Eye Exam: PERRL/EOMI, eyes nml inspection Ears, Nose, Throat Exam: normal ENT inspection, moist mucous membranes Neck Exam: normal inspection, non-tender, supple Respiratory Exam: normal breath sounds, lungs clear, No respiratory distress Cardiovascular Exam: regular rate/rhythm, normal heart sounds, No edema Gastrointestinal/Abdomen Exam: soft, No tenderness, No mass Back Exam: normal inspection, No CVA tenderness, No vertebral tenderness Extremity Exam: normal inspection, normal range of motion Neurologic Exam: alert, oriented x 3, cooperative, normal mood/affect, nml cerebellar function, sensation nml, No motor deficits Skin Exam: normal color, warm, dry Lymphatic Exam: No adenopathy SpO2: 96 - Course Nursing assessment & vital signs reviewed: Yes EKG Interpreted by Me: Sinus Rhythm Rhythm Strip: Normal Sinus Rhythm - Radiology Exams Chest X-ray Interpretation: Reviewed by me, Negative Ordered Tests: Active Orders 24 hr Category Date Time Status Auto Service Writer STAT Care 05/12/23 00:59 Active EKG-ER Only STAT Care 05/12/23 00:59 Active CHEST 2 VIEWS (PA AND LAT) Stat Exams 05/12/23 00:59 Taken CBC W DIFF Stat Lab 05/12/23 01:35 Completed CMP Stat Lab 05/12/23 01:35 Completed MAGNESIUM Stat Lab 05/12/23 01:35 Completed TROPONIN Q4H Lab 05/12/23 01:35 Completed TROPONIN Q4H Lab 05/12/23 05:00 Ordered TROPONIN Q4H Lab 05/12/23 09:00 Ordered Medication Summary Generic Name Dose Route Start Last Admin Trade Name Freq PRN Reason Stop Dose Admin Sodium Chloride 1,000 mls @ 50 mls/hr 05/12/23 01:00 05/12/23 01:50 Sodium Chloride 0.9% 1000 Ml IV 06/11/23 00:59 50 mls/hr .Q20H ADOLFO Administration Lab/Rad Data: Laboratory Result Diagrams 05/12/23 01:35 05/12/23 01:35 Laboratory Results 05/12/23 05/12/23 05/12/23 Range/Units 01:35 01:35 01:35 WBC 6.1 (4.0-10.5) x10^3/uL RBC 5.05 (4.1-5.6) x10^6/uL Hgb 15.6 (12.5-18.0) g/dL Hct 46.3 (42-50) % MCV 91.7 (78-100) fL MCH 30.9 (26-32) pg MCHC 33.7 (32-36) g/dL RDW 13.3 (11.5-14.0) % Plt Count 191 (150-450) x10^3/uL MPV 10.7 (7.5-11.0) fL Gran % 56.2 (36.0-66.0) % Immature Gran % (Auto) 0.2 (0.00-0.4) % Nucleat RBC Rel Count 0.0 (0.00-0.1) % Eos # (Auto) 0.17 (0-0.5) x10^3/uL Immature Gran # (Auto) 0.01 (0.00-0.03) x10^3u/L Absolute Lymphs (auto) 1.46 (1.0-4.6) x10^3/uL Absolute Monos (auto) 0.97 (0.0-1.3) x10^3/uL Absolute Nucleated RBC 0.00 (0.00-0.01) x10^3u/L Lymphocytes % 23.9 L (24.0-44.0) % Monocytes % 15.9 H (0.0-12.0) % Eosinophils % 2.8 (0.00-5.0) % Basophils % 1.0 (0.0-0.4) % Absolute Granulocytes 3.43 (1.4-6.9) x10^3/uL Basophils # 0.06 (0-0.4) x10^3/uL Sodium 134 L (137-145) mmol/L Potassium 3.6 (3.5-5.1) mmol/L Chloride 101 (98-107) mmol/L Carbon Dioxide 25 (22-30) mmol/L Anion Gap 12.1 (5-15) MEQ/L BUN 11 (9-20) mg/dL Creatinine 0.70 (0.66-1.25) mg/dL Estimated GFR 107.5 ML/MIN Glucose 146 H (74-106) mg/dL Calcium 9.1 (8.4-10.2) mg/dL Magnesium 2.1 (1.6-2.3) mg/dL Total Bilirubin 0.70 (0.2-1.3) mg/dL AST 35 (17-59) U/L ALT 41 (0-50) U/L Alkaline Phosphatase 70 (38-126) U/L Troponin I 0.015 (0.000-0.034) ng/mL Serum Total Protein 7.7 (6.3-8.2) g/dL Albumin 4.1 (3.5-5.0) g/dL - Progress Progress: improved Air Movement: good Blood Culture(s) Obtained: No Antibiotics given: No Counseled pt/family regarding: lab results, diagnosis, need for follow-up, rad results Medical Desision Making - Independent Historian Additional History obtained from: Spouse - Diagnostic Testing Diagnostic test were ordered, analyzed, and reviewed by me: Yes Radiological Interpretation: Reviewed by me - Risk of complications Low Risk: Low risk of morbidity from additional dx testing or treatment - Departure Departure Disposition: Home Clinical Impression: Palpitations with regular cardiac rhythm Condition: Stable Critical Care Time: No Referrals: JOVANY ECKERT NP [Primary Care Provider] - Follow Up with PCP/3 days (Follow up with Dr Rosales (cardiology)) Instructions: Palpitations (DC) Additional Instructions: Discharge/Care Plan MARTHA MAURO was seen on 05/12/23 in the Emergency Room. The patient was counseled regarding Diagnosis,Lab results, Imaging studies, need for follow up and when to return to the Emergency Room. Prescriptions given: Discharge Note I have spoken with the patient and/or caregivers. I have explained the patient's condition, diagnosis and treatment plan based on the information available to me at this time. I have answered the patient's and/or caregiver's questions and ad dressed any concerns. The patient and/or caregivers have as good understanding of the patient's diagnosis, condition and treatment plan as can be expected at this point. The vital signs have been stable. The patient's condition is stable and appropriate for discharge from the emergency department. The patient will pursue further outpatient evaluation with the primary care physician or other designated or consulting physician as outlined in the discharge instructions. The patient and/or caregivers are agreeable to this plan of care and follow-up instructions have been explained in detail. The patient and/or caregivers have received these instruction. The patient/and or caregivers are aware that any significant change in condition or worsening of symptoms should prompt an immediate return to this or the closest emergency department or call 911. MARTHA MAURO was seen on 05/12/23 n the Emergency Room. At that time you were treated for an emergent condition, during your visit Laboratory, Radiology and/or other procedures may have been ordered. It is very important that you follow-up with your Primary Care Physician JOVANY ECKERT within the next 24-48 hours to review your Emergency Room visit and the final results of testing that was ordered. Some test results such as Urine Cultures, Blood Cultures, and other cultures if ordered will not be finalized for 24-48 hours. If you do not have a Primary Care Provider please call the medical records department at [phone] ext [phone] to obtain a copy of your results or you may sign into our patient portal to obtain these results by visiting us @ [email or web address] and completing the following steps: 1. Click on the Patient Portal link 2. Click the Patient Self Enrollment Link to complete the enrollment form and entering your 3. Once the enrollment form is completed you will receive an email with a temporary ID and password at the email address you provided. 4. Next choose a user name and password. Your user name must be at least 4 characters long and your password must be at least 4 characters long. 5. Choose a security question from the list and provide your answer to the question. If you already have signed into the Health Portal you may access your Health Care Information 31/12 by the following steps: 1. Login to our website @ [email or web address] 2. Enter your original user name and password. FAQS The [facility] Health Portal is an online tool that contains your Lab Results, Radiology Reports, Visit History, Discharge Instructions and Health Summary Lab and Radiology Results will not be available for 72 hours on the portal. The Portal is a secure site, passwords are encryted and URLs are re-written so they cannot be copied and pasted. You and authorized family members are the only ones who can access your Portal. Also there is a timeout feature that protects your information if you leave the Portal page open. If you have technical difficulty please use the Contact Us link on the page this will allow you to submit any questions you have regarding the Portal or you may contact the Medical Record Department at [phone] ext [phone].
--- NOTE | 2023-05-12 08:04 | XRAY ---
Indication: Palpitations. Comparison: May 05, 2022 PA/lateral chest again demonstrates a few tiny calcified granulomas. No focal infiltrate, consolidation, or large effusion. Heart not enlarged. Bony thorax intact again with mild degenerative changes. Impression: Continued nonacute chest with chronic features.
== END 2023-05-12 02:26 | disposition home or self-care (01) ==
LOC: ED 00:34
DX: R00.2 Palpitations (principal); R42 Dizziness and giddiness; E78.5 Hyperlipidemia, unspecified; I10 Essential (primary) hypertension; Z79.899 Other long term (current) drug therapy; Z28.310 Unvaccinated for COVID-19
CPT/HCPCS: 36415; 71046; 80053; 83735; 84484; 85025; 93005; 93041; 99284